=== PATIENT | male | born 1985 ===

== ENCOUNTER → 2023-08-31 09:59 | Outpatient (CLI) | payer OTHER, SELFPAY ==
--- NOTE | 2023-08-31 10:00 | DI.US.S_ITS ---
PROCEDURE: US SCROTUM INDICATIONS: eval left testicle--hx torsion TECHNIQUE: Real-time scanning was performed of the scrotum and testicles, with image documentation. Color and pulse Doppler interrogation was performed of both testicles. COMPARISON: None. FINDINGS: Right: Testicle is normal in size at 4.7 x 2.5 x 3.0 cm, and homogenous in echotexture. Epididymis is normal in overall size and morphology. No hydrocele or varicoceles. Overlying scrotal skin is normal in thickness. Left: Testicle is normal in size at 3.8 x 3.1 x 3.0 cm, and homogeneous in echotexture. Epididymis is prominent with increased vascularity.. Prominent hydrocele without varicoceles. Overlying scrotal skin is normal in thickness. Doppler: Color and pulse Doppler demonstrate normal and symmetric arterial flow in both testicles. IMPRESSION: Increased prominence and vascularity of the left epididymis suggestive of epididymitis. No torsion at time of exam. Prominent left hydrocele. Dictated by: Charlotte Au M.D. on 08/31/2023 at 11:54 Approved by: Charlotte Au M.D. on 08/31/2023 at 11:55
== END ==
LOC: US 10:00
PROVIDERS: Referring Provider Student in an Organized Health Care Education/Training Program; Visit Provider Student in an Organized Health Care Education/Training Program
DX: N50.812 Left testicular pain (principal); N43.3 Hydrocele, unspecified
CPT/HCPCS: 76870